=== PATIENT | male | born 1985 | race Hispanic/Latino ===

== ENCOUNTER 2023-02-06 09:32 | Emergency (ER) | payer SELFPAY ==
[2023-02-06 10:26] LABS: Hematocrit 43.5 % (42.0-52.0); Hemoglobin 14.8 g/dL (14.0-18.0); Lymphocytes 12 % (21-51); MDiff Complete? YES; Mean Corpuscular Hemoglobin 33.6 pg (27.0-31.0); Mean Corpuscular Volume 98.8 fl (78.0-98.0); Mean Platelet Volume 9.7 fL (7.4-10.4); Monocytes 2 % (0-10); Neutrophil 86 % (42-75); Platelet Adequacy Comment Appears Adequate; Platelet Count 155 10x3/uL (130-400); RBC Distribution Width 12.2 % (11.5-14.5)
[2023-02-06 10:36] LABS: ALT (SGPT) 151 U/L (8-55); AST (SGOT) 136 U/L (5-34); Albumin 4.2 g/dL (3.5-5.0); Alkaline Phosphatase 71 U/L (40-110); Anion Gap 17 mmol/L (10-20); BUN (Urea Nitrogen) 11 mg/dL (8.9-20.6); Bilirubin, Total 1.5 mg/dL (0.2-1.2); Calc. Creatinine Clearance 0 mL/min (70-130); Carbon Dioxide 20 mmol/L (22-29); Chloride 106 mmol/L (98-107); Estimated GFR 114; Globulin 3.1 g/dL (2.4-3.5); Glucose 102 mg/dL (70-105); Magnesium 1.5 mg/dL (1.6-2.6); Potassium 3.2 mmol/L (3.5-5.1); Protein, Total 7.3 g/dL (6.0-8.3); Sodium 140 mmol/L (136-145)
[2023-02-06] MEDS ORDERED: Potassium Chloride 20 MEQ TAB ONE (10:53)
[2023-02-06] MEDS ORDERED: Magnesium Oxide 400 MG TAB ONE (10:53)
== END 2023-02-06 11:03 | disposition home or self-care (01) ==
LOC: MADERS 09:32
DX: E83.42 Hypomagnesemia (principal); E86.0 Dehydration; E87.6 Hypokalemia
CPT/HCPCS: 36415; 80053; 83735; 85025; 96360